=== PATIENT | female | born 1985 | race Two or more races ===

== ENCOUNTER → 2017-03-18 | Outpatient (CLI) | payer OTHER ==
[2017-03-18 17:26] LABS: ALBUMIN 3.7 GM/DL (3.2-5.2); ALBUMIN/GLOBULIN RATIO 1.06 (1.00-1.93); ALKALINE PHOSPHATASE 72 U/L (45-117); ALT/SGPT 10 U/L (12-78); ANION GAP 6 MEQ/L (8-16); AST/SGOT 12 U/L (7-37); BILIRUBIN,TOTAL 0.6 MG/DL (0.2-1.0); BLOOD UREA NITROGEN 7 MG/DL (7-18); CARBON DIOXIDE LEVEL 27 MEQ/L (21-32); CHLORIDE LEVEL 108 MEQ/L (98-107); CREATININE FOR GFR 0.86 MG/DL (0.55-1.02); FREE T4 1.03 NG/DL (0.76-1.46); GLOMERULAR FILTRATION RATE > 60.0 (>60); GLUCOSE, FASTING 82 MG/DL (70-105); SODIUM LEVEL 141 MEQ/L (136-145); TOTAL PROTEIN 7.2 GM/DL (6.4-8.2)
== END ==
LOC: M LRY 10:50
DX: E03.9 Hypothyroidism, unspecified (principal); E66.09 Other obesity due to excess calories; R53.83 Other fatigue

== ENCOUNTER → 2017-03-25 | Outpatient (REF) | payer OTHER ==
[2017-03-25 20:48] LABS: CHLAMYDIA DNA AMPLIFICATION NEGATIVE (NEGATIVE); GC DNA AMPLIFICATION NEGATIVE (NEGATIVE)
== END ==
LOC: M LAB REF 17:05
DX: Z01.419 Encounter for gynecological examination (general) (routine) without abnormal findings (principal)
CPT/HCPCS: 87591

== ENCOUNTER → 2017-04-23 | Outpatient (REF) | payer OTHER | LOC: M SFHCLERA 16:33 | DX: J02.9 Acute pharyngitis, unspecified (principal) ==

== ENCOUNTER → 2017-06-03 | Outpatient (CLI) | payer OTHER | LOC: M RAD 16:04 | DX: R10.2 Pelvic and perineal pain (principal); N83.202 Unspecified ovarian cyst, left side | CPT/HCPCS: 76856 ==

== ENCOUNTER → 2017-08-04 | Outpatient (REF) | payer OTHER | LOC: M SFHCPLAZ 17:44 | DX: Z12.4 Encounter for screening for malignant neoplasm of cervix (principal) ==

== ENCOUNTER → 2017-10-01 | Outpatient (CLI) | payer OTHER ==
[2017-10-01 08:52] LABS: BASO % 0.3 % (0.0-1.0); EOS # 0.2 10^3/uL (0.0-0.50); EOS % 1.4 % (0.0-3.0); HEMATOCRIT 37.7 % (36.0-47.0); HEMOGLOBIN 12.3 g/dl (12.0-15.5); IMMATURE GRANULOCYTE % 0.7 % (0-3.0); LYMPH % 18.1 % (24.0-44.0); MEAN CORPUSCULAR HEMOGLOBIN 26.1 pg (27.0-33.0); MEAN CORPUSCULAR HGB CONC 32.6 g/dl (32.0-36.5); MEAN CORPUSCULAR VOLUME 79.9 fl (80.0-96.0); MONO # 0.6 10^3/uL (0.0-0.8); MONO % 4.9 % (0.0-5.0); NEUTROPHILS # 8.4 10^3/uL (1.8-7.7); NEUTROPHILS % 74.6 % (36.0-66.0); PLATELET COUNT, AUTOMATED 245 10^3/uL (150-450); RED BLOOD COUNT 4.72 10^6/uL (4.00-5.40); RED CELL DISTRIBUTION WIDTH 14.1 % (11.5-14.5); WHITE BLOOD COUNT 11.2 10^3/uL (4.0-10.0)
[2017-10-01 09:30] LABS: FREE T4 0.98 NG/DL (0.76-1.46); THYROID STIMULATING HORMONE 0.453 uIU/ML (0.358-3.740)
[2017-10-01 10:32] LABS: CHLAMYDIA DNA AMPLIFICATION NEGATIVE (NEGATIVE); GC DNA AMPLIFICATION NEGATIVE (NEGATIVE)
[2017-10-02 10:38] LABS: RUBELLA IgG QUALITATIVE IMMUNE (IMMUNE)
[2017-10-02 10:48] LABS: HBsAg Prenatal NEGATIVE (NEGATIVE)
[2017-10-02 11:08] LABS: HEPATITIS C VIRUS ABY INDEX 0.2 INDEX (<0.8)
[2017-10-02 11:09] LABS: HIV 1&2 SCREEN CENTAUR NEGATIVE (NEGATIVE)
== END ==
LOC: M LAB 08:05
DX: Z34.81 Encounter for supervision of other normal pregnancy, first trimester (principal); Z3A.10 10 weeks gestation of pregnancy
CPT/HCPCS: 84443

== ENCOUNTER → 2017-12-04 | Outpatient (CLI) | payer OTHER | LOC: M RAD 06:29 | DX: Z36.9 Encounter for antenatal screening, unspecified (principal); Z3A.20 20 weeks gestation of pregnancy | CPT/HCPCS: 76816 ==

== ENCOUNTER → 2017-12-29 | Outpatient (CLI) | payer OTHER | LOC: M RAD 09:08 | DX: O34.12 Maternal care for benign tumor of corpus uteri, second trimester (principal); Z36.89 Encounter for other specified antenatal screening; Z3A.23 23 weeks gestation of pregnancy; D25.9 Leiomyoma of uterus, unspecified | CPT/HCPCS: 76816 ==

== ENCOUNTER → 2018-01-14 | Outpatient (CLI) | payer OTHER ==
[2018-01-14 17:50] LABS: GLUCOSE CHALLENGE TEST 1 HOUR 116 MG/DL (LESS THAN 140)
[2018-01-14 17:52] LABS: HEMATOCRIT 35.2 % (36.0-47.0); HEMOGLOBIN 11.3 g/dl (12.0-15.5); MEAN CORPUSCULAR HEMOGLOBIN 27.2 pg (27.0-33.0); MEAN CORPUSCULAR HGB CONC 32.1 g/dl (32.0-36.5); MEAN CORPUSCULAR VOLUME 84.6 fl (80.0-96.0); PLATELET COUNT, AUTOMATED 225 10^3/uL (150-450); RED BLOOD COUNT 4.16 10^6/uL (4.00-5.40); RED CELL DISTRIBUTION WIDTH 13.9 % (11.5-14.5); WHITE BLOOD COUNT 16.6 10^3/uL (4.0-10.0)
== END ==
LOC: M SMT 13:03
DX: Z34.82 Encounter for supervision of other normal pregnancy, second trimester (principal)
CPT/HCPCS: 82950

== ENCOUNTER → 2018-01-22 | Outpatient (CLI) | payer OTHER | LOC: M RAD 14:42 | DX: Z34.82 Encounter for supervision of other normal pregnancy, second trimester (principal); Z36.89 Encounter for other specified antenatal screening; Z3A.27 27 weeks gestation of pregnancy | CPT/HCPCS: 76816 ==

== ENCOUNTER → 2018-03-18 | Outpatient (REF) | payer OTHER ==
[~2018-03-18] MED LIST: MACR100C43 PO; THYR60TA PO
[2018-03-18 19:06] LABS: CHLAMYDIA DNA AMPLIFICATION NEGATIVE (NEGATIVE); GC DNA AMPLIFICATION NEGATIVE (NEGATIVE)
== END ==
LOC: M LAB REF 16:39
PROVIDERS: ATTEND Obstetrics & Gynecology
DX: Z11.3 Encounter for screening for infections with a predominantly sexual mode of transmission (principal); Z34.83 Encounter for supervision of other normal pregnancy, third trimester

== ENCOUNTER → 2018-04-07 | Outpatient (CLI) | payer OTHER ==
[2018-04-07 14:01] LABS: FREE T4 0.75 NG/DL (0.76-1.46); THYROID STIMULATING HORMONE 0.809 uIU/ML (0.358-3.740)
== END ==
LOC: M SMT 10:16
PROVIDERS: ATTEND Advanced Practice Midwife
DX: O99.283 Endocrine, nutritional and metabolic diseases complicating pregnancy, third trimester (principal); Z3A.00 Weeks of gestation of pregnancy not specified

== ENCOUNTER 2018-04-24 12:51 | Inpatient (IN) | payer OTHER ==
[2018-04-24] VITALS (14 sets, daily range): BP systolic 111–134; BP diastolic 56–77
[~2018-04-24] VITALS: Ht 157.5 cm; Wt 99.7 kg
[2018-04-24] MEDS ORDERED: PRENTAB9 PO (13:16)
[2018-04-24] MEDS ORDERED: PENICILLIN G POTASSIUM IV 5 MU in D5W MINI-BAG PLUS 100 ML IV STA (14:02)
[2018-04-24] MEDS: miSOPROStol 50 MCG 1/2 TAB (S0191) PO SCH ×2 (14:27→19:00)
[2018-04-24 14:59] LABS: HEMATOCRIT 36.3 % (36.0-47.0); HEMOGLOBIN 11.8 g/dl (12.0-15.5); MEAN CORPUSCULAR HGB CONC 32.5 g/dl (32.0-36.5); PLATELET COUNT, AUTOMATED 175 10^3/uL (150-450); RED BLOOD COUNT 4.54 10^6/uL (4.00-5.40)
[2018-04-24] MEDS: LR 1,000 ML IV SCH (16:33)
[2018-04-24] MEDS ORDERED: PENICILLIN G POTASSIUM IV 2.5 MU in APPROPRIATE DILUENT 1 EA IV SCH (18:15)
[2018-04-24] MEDS ORDERED: LR 1,000 ML IV SCH (19:43)
[2018-04-24] MEDS ORDERED: OXYTOCIN DRIP 30 UNITS in APPROPRIATE DILUENT 1 EA IV SCH (19:45)
--- NOTE | 2018-04-24 22:57 | NUR ---
L&D Note: S:Feeling more uncomfortable. O: vss, AF cat 1 tracing,pitocin at 4mU gen: well appearing cx: 2/75/-2, A/P: 32yo IOL-will cont pitocin reassuring status - cont IOL -stadol and phenergan for pain. Epidural at request. Good candidate Ryanne Sellers MD
[2018-04-24] MEDS ORDERED: PROMETHAZINE INJ 25 MG/ML VIAL (J2550) IV PRN (23:00)
[2018-04-24] MEDS ORDERED: BUTORPHANOL 2 MG/ML INJ (J0595) IV ONE (23:00)
[2018-04-25] VITALS (43 sets, daily range): BP systolic 84–142; BP diastolic 44–81
[2018-04-25] MEDS: LR 1,000 ML IV SCH ×2 (01:54→04:23)
[2018-04-25] MEDS ORDERED: FENTANYL 2MCG/ML ROPIVACAINE 0.2% IN 0.9% NACL 100ML IVBAG As Ordered ONE (02:47)
[2018-04-25] MEDS ORDERED: PENICILLIN G POTASSIUM IV 5 MU in D5W MINI-BAG PLUS 100 ML IV STA (03:00)
[2018-04-25] MEDS ORDERED: ePHEDrine SULFATE 25 MG/5 ML(5MG/ML) SYRINGE As Ordered ONE (04:12)
[2018-04-25] MEDS ORDERED: EPIDURAL/PCA KEYS XX PRN (04:15)
[2018-04-25] MEDS: FENTANYL/ROPIVACAINE/NACL BAG 100 ML EPIDURAL SCH ×2 (04:15→10:53)
[2018-04-25] MEDS: ePHEDrine SULFATE 25 MG/5 ML(5MG/ML) SYRINGE IV PRN ×2 (04:15→04:22)
[2018-04-25] MEDS ORDERED: ONDANSETRON 4MG/2ML VIAL (J2405) IV PRN ×2 (04:15→15:15)
[2018-04-25] MEDS ORDERED: REFRIGERATOR IV KEYS XX PRN (04:15)
[2018-04-25] MEDS ORDERED: NALOXONE INJ 0.4 MG/1 ML VIAL (J2310) IV PRN (04:15)
[2018-04-25] MEDS ORDERED: diphenhydrAMINE INJ 50MG/ML VIAL (J1200) IV PRN (04:15)
[2018-04-25] MEDS ORDERED: EPIDURAL COMMENT XX SCH (04:15)
[2018-04-25] MEDS ORDERED: LACTATED RINGER'S 1000 ML IV PRN (04:15)
--- NOTE | 2018-04-25 05:09 | HPE ---
DATE OF ADMISSION: 04/24/2018 REASON FOR ADMISSION: Induction of labor. HISTORY OF PRESENT ILLNESS: Ms. Saavedra is a 32-year-old 1, who presents at 40 weeks and 6 days estimated gestational age by her last menstrual period (LMP) confirmed by a first trimester ultrasound here for induction of labor. Her course has been unremarkable. She initiated care in her first trimester and has been appropriate throughout. PAST MEDICAL HISTORY: Hypothyroidism. PAST SURGICAL HISTORY: She has had oral surgery. MEDICATIONS: Include: - vitamins ALLERGIES: She has allergies to PEANUTS. PAST OBSTETRICAL HISTORY: She is a 1. SOCIAL HISTORY: She denies any alcohol, tobacco or drug use during her . PHYSICAL EXAMINATION: On physical examination: VITAL SIGNS: Stable. She is afebrile. GENERAL APPEARANCE: Well-appearing in no acute distress. She has a category 1 heart tracing with some irregular contractions on tocometer. LUNGS: Clear to auscultation bilaterally. CARDIOVASCULAR: Heart regular rate and rhythm. ABDOMEN: Gravid, and nontender. Estimated weight (EFW) of 3400 grams. CERVICAL EXAM: Her cervix is 1 cm dilated, 75% effaced. LABORATORIES: Blood type is O positive. Antibody screen is negative. Rubella is immune. RPR is nonreactive. Hepatitis surface antigen is negative. Human immunodeficiency virus (HIV) is negative. Hepatitis C was nonreactive. Chlamydia and gonorrhea screens were negative. She had a normal 1-hour Glucola, and she is group B Streptococcus (GBS) positive. ASSESSMENT: 1. Ms. Saavedra is a 32-year-old 1 at 40 weeks, 6 days estimated gestational age here for induction of labor. 2. Reassuring status. 3. Group B Streptococcus (GBS) positive. PLAN: 1. Admit to labor and delivery. Complete blood count (CBC), type and screen. 2. Antibiotics for GBS prophylaxis. 3. The patient has been thoroughly counseled in regards to induction of labor. I discussed medications as well as procedures performed in labor and delivery. She has also been verbally consented for emergency surgery, blood products, anesthesia, and desires to proceed with induction of labor. 4. We will initiate her induction with oral misoprostal.
--- NOTE | 2018-04-25 08:18 | NUR ---
L&D Note: S: Comfortable after epidural O: vss, AF cat II tracing. Resolved after fluid bolus, position change and O2 gen: well appearing abd: gravid cx: 4/75/-1, AROM clear, FSE and IUPC placed A/P: IOL at 41wks Reassuring status -cont pitocin IOL -well re examine within 4 hrs Ryanne Sellers MD
[2018-04-25] MEDS: PENICILLIN G POTASSIUM IV 2.5 MU in APPROPRIATE DILUENT 1 EA IV SCH ×2 (09:36→13:47)
[2018-04-25 14:30] LABS: CORD GAS ABE A -8.4; CORD GAS HCO3 A 19.5 MEQ/L; CORD GAS O2 SAT A 51.3 %; CORD GAS PCO2 A 48.5 mmHg; CORD GAS PH A 7.222 UNITS; CORD GAS SBC A 16.8 MEQ/L
[2018-04-25 14:31] LABS: CORD GAS HCO3 V 15.6 MEQ/L; CORD GAS O2 SAT V 51.1 %; CORD GAS PCO2 V 37.8 mmHg; CORD GAS PH V 7.234 UNITS; CORD GAS PO2 V 27.2 mmHg; CORD GAS TCO2 V 16.8 MEQ/L
[2018-04-25] MEDS ORDERED: DIBUCAINE 1% OINTMENT 30GM TOP PRN (15:15)
[2018-04-25] MEDS ORDERED: ANUSOL HC CREAM 30GM TOP PRN (15:15)
[2018-04-25] MEDS ORDERED: METHYLERGONOVINE MALEATE 0.2 MG TAB PO PRN (15:15)
[2018-04-25] MEDS ORDERED: MEASLES,MUMPS,RUBELLA VACCINE INJ (MMR-II) (90707) SC SCH (15:15)
[2018-04-25] MEDS ORDERED: MOM 30ML SUSPENSION UDC PO PRN (15:15)
[2018-04-25] MEDS ORDERED: DOCUSATE SODIUM 100 MG CAP PO PRN (15:15)
[2018-04-25] MEDS ORDERED: RHOGAM 300 MCG (1500 IU) INJ (J2790) IM SCH (15:15)
[2018-04-25] MEDS ORDERED: OXYTOCIN DRIP 30 UNITS in APPROPRIATE DILUENT 1 EA IV SCH (15:30)
[2018-04-25] MEDS: ACETAMINOPHEN 500 MG TAB PO PRN (15:42)
[2018-04-25] MEDS: PRENATAL VITAMINS CHEWABLE TABLET PO SCH (21:39)
[2018-04-26] MEDS: IBUPROFEN 800 MG TAB PO PRN ×2 (02:56→12:21)
[2018-04-26 05:55] VITALS: BP 114/54
--- NOTE | 2018-04-26 06:25 | DN ---
DATE OF DELIVERY: 04/25/2018 TIME OF : 1421 GENDER: Female. APGARS: 9 and 9. WEIGHT: 6 pounds 13 ounces or 3080 grams. ANESTHESIA: Epidural. LACERATION: First degree midline laceration. ESTIMATED BLOOD LOSS: 300 mL. ANESTHESIA: Epidural. COUNTS: 5 laparotomy sponges accounted for prior to and after delivery, 3 sharps removed from delivery field. CORD GASES: 7.22, 7.23, base excesses -8.4, -11. DELIVERY NOTE: On 04/25/2018, at 1421, Mrs. Saavedra, a 32-year-old, 1, now para 1, had a spontaneous vaginal delivery of a live female infant, Apgars 9 and 9, weight 6 pounds 13 ounces or 3080 grams. The time of was 1421. Head was delivered occiput anterior (OA). There was a nuchal cord which was manually reduced as well as a right nuchal arm. This was followed by delivery of left anterior shoulder. The infant was then handed to mom with a good cry. Cord was clamped times two and was cut by the father of the baby under my direction. Cord gases and blood was obtained. The placenta was drained and delivered grossly intact. A premixed bag of 500 mL of normal saline with 30 units of Pitocin was then bolused along with uterine massage until the uterus was firm. On inspection, there was a first degree midline laceration which was repaired with #3-0 Vicryl Rapide. On reinspection, the cervix, vagina and perineum was grossly intact and hemostatic. Mom and baby to recovery in stable condition. The couple has decided to name their daughter Courtney Tinsley.
[2018-04-26] MEDS: ACETAMINOPHEN 500 MG TAB PO PRN ×2 (07:59→15:14)
[2018-04-26] MEDS: PRENATAL VITAMINS CHEWABLE TABLET PO SCH (09:00)
--- NOTE | 2018-04-26 10:11 | NUR ---
PPD#1 S: Doing well w/o complaints. +Ambulation, + voids and pain well controlled. O: vss, AF Gen: well appearing abd: soft, nttp with FF@u-2 ext: neg calf tenderness A/P: PPD#1 s/p -recovering in stable condition -cont routine care -discharge plans for tomorrow Ryanne Sellers MD
[2018-04-26] MEDS ORDERED: LABETALOL HCL 100 MG/20 ML VIAL IV STA (13:29)
[2018-04-26 18:00] VITALS: BP 107/58
[2018-04-27] MEDS: IBUPROFEN 800 MG TAB PO PRN (02:01)
[2018-04-27 06:00] VITALS: BP 124/59
[2018-04-27] MEDS: PRENATAL VITAMINS CHEWABLE TABLET PO SCH (07:38)
[2018-04-27] MEDS ORDERED: MAPA500T2 PO (07:41)
[2018-04-27] MEDS ORDERED: IBUP-1114 PO (07:41)
== END 2018-04-27 09:05 | disposition home or self-care (01) | DRG 807 ==
LOC: M LDI 12:51 → M OBS 04-25 16:40
PROVIDERS: ADMIT Obstetrics & Gynecology; ATTEND Obstetrics & Gynecology
PROC: 3E0P7GC Introduction of Other Therapeutic Substance into Female Reproductive, Via Natural or Artificial Opening (ICD-10-PCS; 2018-04-24)
PROC: 10E0XZZ Delivery of Products of Conception, External Approach (ICD-10-PCS; principal; 2018-04-25)
PROC: 0HQ9XZZ Repair Perineum Skin, External Approach (ICD-10-PCS; 2018-04-25)
DX: O48.0 Post-term pregnancy (principal); Z37.0 Single live birth; Z3A.40 40 weeks gestation of pregnancy; O99.824 Streptococcus B carrier state complicating childbirth; O70.0 First degree perineal laceration during delivery; O69.81X0 Labor and delivery complicated by cord around neck, without compression, not applicable or unspecified; O69.82X0 Labor and delivery complicated by other cord entanglement, without compression, not applicable or unspecified

== ENCOUNTER → 2018-06-04 | Outpatient (CLI) | payer OTHER ==
[~2018-06-04] MED LIST changes: +IBUP-1114 PO; +MAPA500T2 PO; +PRENTAB9 PO
[2018-06-04 10:58] LABS: FREE T4 1.05 NG/DL (0.76-1.46); THYROID STIMULATING HORMONE 1.02 uIU/ML (0.358-3.740)
[2018-06-04 11:19] LABS: TOTAL 25(OH) VITAMIN D 46.8 NG/ML (30.0-100.0)
== END ==
LOC: M SMT 08:46
PROVIDERS: ATTEND Family Medicine
DX: E03.9 Hypothyroidism, unspecified (principal)

== ENCOUNTER 2018-07-05 13:41 | Emergency (ER) | payer OTHER ==
[~2018-07-05] VITALS: Ht 157.5 cm; Wt 84.1 kg
[2018-07-05] MEDS ORDERED: NS 1,000 ML IV ONE (15:15)
[2018-07-05 15:17] LABS: BASO % 0.4 % (0.0-1.0); EOS # 0.4 10^3/uL (0.0-0.50); EOS % 4.9 % (0.0-3.0); HEMATOCRIT 40.9 % (36.0-47.0); HEMOGLOBIN 13.2 g/dl (12.0-15.5); LYMPH # 2.5 10^3/uL (1.5-4.5); LYMPH % 33.8 % (24.0-44.0); MEAN CORPUSCULAR HEMOGLOBIN 25.8 pg (27.0-33.0); MEAN CORPUSCULAR HGB CONC 32.3 g/dl (32.0-36.5); MEAN CORPUSCULAR VOLUME 79.9 fl (80.0-96.0); MONO # 0.3 10^3/uL (0.0-0.8); MONO % 4.3 % (0.0-5.0); NEUTROPHILS # 4.2 10^3/uL (1.8-7.7); NEUTROPHILS % 56.3 % (36.0-66.0); PLATELET COUNT, AUTOMATED 262 10^3/uL (150-450); RED BLOOD COUNT 5.12 10^6/uL (4.00-5.40); WHITE BLOOD COUNT 7.4 10^3/uL (4.0-10.0)
[2018-07-05 15:36] LABS: BLOOD UREA NITROGEN 14 MG/DL (7-18); CALCIUM LEVEL 9.4 MG/DL (8.5-10.1); CARBON DIOXIDE LEVEL 28 MEQ/L (21-32); CHLORIDE LEVEL 106 MEQ/L (98-107); CREATININE FOR GFR 0.85 MG/DL (0.55-1.30); GLOMERULAR FILTRATION RATE > 60.0 (>60); GLUCOSE, FASTING 79 MG/DL (70-100); POTASSIUM SERUM 4.1 MEQ/L (3.5-5.1); SODIUM LEVEL 138 MEQ/L (136-145)
--- NOTE | 2018-07-05 16:08 | REP ---
PELVIC SONOGRAPHY: HISTORY: 10 weeks with irregular bleeding. vaginal bleeding. FINDINGS: Transabdominal and transvaginal scanning are performed. Uterine dimensions are normal measured at 8.0 x 4.0 x 5.7 cm. Endometrial echo 0.7 cm thick. There is some fluid in the endocervical canal and a trace of fluid is seen in the posterior cul-de-sac. There is a echogenic area in the lower uterine segment endometrium consistent with a thrombus. Visualized bladder moody are smooth. Normal ovaries seen bilaterally. Right ovary measures 3.0 x 2.1 x 2.9 cm. Left ovary dimensions are 2.6 x 3.0 x 2.5 cm. Ovarian Doppler flow is normal. Resistive indices by Doppler are 0.47 and 0.70 on the right and left respectively. IMPRESSION: Endocervical fluid and 5 mm lower uterine segment endometrial focus consistent with thrombus. Otherwise normal pelvic sonography. Electronically Signed by Norberto Shelton MD 07/05/2018 04:59 P
[2018-07-05] MEDS ORDERED: IBUP-1022 PO (16:44)
[2018-07-05 16:53] VITALS: BP 124/82
== END 2018-07-05 16:56 | disposition home or self-care (01) ==
LOC: M ED 13:41
DX: N93.8 Other specified abnormal uterine and vaginal bleeding (principal)

== ENCOUNTER → 2018-09-15 | Outpatient (REF) | payer OTHER ==
[~2018-09-15] MED LIST changes: +IBUP-1022 PO
[2018-09-17 14:42] LABS: HPV HYBRID CAPTURE II Negative (Negative)
== END ==
LOC: M LAB REF 18:21
PROVIDERS: ATTEND Obstetrics & Gynecology
DX: Z12.4 Encounter for screening for malignant neoplasm of cervix (principal)
CPT/HCPCS: 87624; G0123

== ENCOUNTER → 2018-10-07 | Outpatient (CLI) | payer OTHER ==
--- NOTE | 2018-10-07 10:14 | REP ---
PELVIC ULTRASOUND: Real-time sonographic evaluation of the pelvis performed utilizing transabdominal and endovaginal technique. Bladder measures 4.9 x 3.5 x 6.4 cm. Uterus measures 7.1 x 3.6 x 4.8 cm. Endometrial thickness is 7 mm. There is no endometrial fluid collection. Exophytic fibroid is seen of the left posterior uterus measuring 1 cm in diameter. Another is seen anteriorly on the right measuring 1.1 x 0.8 x 1.3 cm. Ovaries are normal in size and echotexture, right ovary measuring 3.3 x 1.7 x 3.0 cm and left ovary 3.3 x 1.4 x 2.8 cm. There is no adnexal mass or free fluid. There is no evidence of ovarian torsion. IMPRESSION: Two uterine fibroids are visualized, which appear to be subserosal, one on the left posteriorly and one on the right anteriorly as discussed above. Electronically Signed by Sonu Meredith MD 10/10/2018 07:02 P
== END ==
LOC: M RAD 08:06
PROVIDERS: ATTEND Obstetrics & Gynecology
DX: N92.0 Excessive and frequent menstruation with regular cycle (principal)

== ENCOUNTER → 2018-12-06 | Outpatient (CLI) | payer OTHER ==
[2018-12-06 11:28] LABS: BASO % 0.4 % (0.0-1.0); EOS # 0.1 10^3/uL (0.0-0.5); EOS % 1.7 % (0.0-3.0); HEMATOCRIT 43.4 % (36.0-47.0); HEMOGLOBIN 13.9 g/dl (12.0-15.5); LYMPH # 2.2 10^3/uL (1.5-5.0); LYMPH % 31.2 % (24.0-44.0); MEAN CORPUSCULAR HEMOGLOBIN 27.1 pg (27.0-33.0); MEAN CORPUSCULAR VOLUME 84.6 fl (80.0-96.0); MONO # 0.4 10^3/uL (0.0-0.8); MONO % 5.7 % (0.0-5.0); NEUTROPHILS # 4.2 10^3/uL (1.5-8.5); NEUTROPHILS % 60.7 % (36.0-66.0); PLATELET COUNT, AUTOMATED 238 10^3/uL (150-450); RED BLOOD COUNT 5.13 10^6/uL (4.00-5.40); WHITE BLOOD COUNT 6.9 10^3/uL (4.0-10.0)
[2018-12-06 12:02] LABS: ALBUMIN 3.6 GM/DL (3.2-5.2); ALT/SGPT 15 U/L (12-78); BILIRUBIN,TOTAL 0.3 MG/DL (0.2-1.0); BLOOD UREA NITROGEN 7 MG/DL (7-18); CALCIUM LEVEL 8.4 MG/DL (8.5-10.1); CARBON DIOXIDE LEVEL 27 MEQ/L (21-32); CHLORIDE LEVEL 107 MEQ/L (98-107); CREATININE FOR GFR 0.88 MG/DL (0.55-1.30); GLOMERULAR FILTRATION RATE > 60.0 (>60); GLUCOSE, FASTING 56 MG/DL (70-100); POTASSIUM SERUM 4.4 MEQ/L (3.5-5.1); SODIUM LEVEL 140 MEQ/L (136-145); THYROID STIMULATING HORMONE 0.519 uIU/ML (0.358-3.740); TOTAL PROTEIN 7.4 GM/DL (6.4-8.2)
== END ==
LOC: M SMT 09:11
PROVIDERS: ATTEND Family Medicine
DX: Z13.29 Encounter for screening for other suspected endocrine disorder (principal); Z13.0 Encounter for screening for diseases of the blood and blood-forming organs and certain disorders involving the immune mechanism